=== PATIENT | male | born 1965 | race Caucasian/White ===

== ENCOUNTER 2017-03-15 18:48 | Emergency (ER) | payer MEDICAID ==
[2017-03-15 19:08] VITALS: RESP 18; TEMP 98.6
[2017-03-15] MEDS ORDERED: NS 1,000 ML IV ONE (19:10)
--- NOTE | 2017-03-15 19:12 | EDPHY ---
H & P Time Seen by Provider: 03/15/17 19:06 HPI/ROS: CHIEF COMPLAINT: Vomiting blood HISTORY OF PRESENT ILLNESS: Patient is a 51-year-old homeless man who comes to the emergency department complaining of vomiting blood several times over the last 2 days. He states that there only specks blood. He denies blood in his stool. He denies abdominal pain. He denies heartburn. He is an alcoholic. States that this happened 4 unusually resolve spontaneously. Does not take any medications. REVIEW OF SYSTEMS: Constitutional: denies: chills, fever, recent illness, recent injury EENTM: denies: blurred vision, double vision, nose congestion Respiratory: denies: cough, shortness of breath Cardiac: denies: chest pain, irregular heart rate, lightheadedness, palpitations Gastrointestinal/Abdominal: See HPI Genitourinary: denies: dysuria, frequency, hematuria, pain Musculoskeletal: denies: joint pain, muscle pain Skin: denies: lesions, rash, jaundice, bruising Neurological: denies: headache, numbness, paresthesia, tingling, dizziness, weakness Hematologic/Lymphatic: denies: blood clots, easy bleeding, easy bruising Immunologic/allergic: denies: HIV/AIDS, transplant EXAM: GENERAL: Well-appearing, well-nourished and in no acute distress. HEAD: Atraumatic, normocephalic. EYES: Pupils equal round and reactive to light, extraocular movements intact, sclera anicteric, conjunctiva are normal. ENT: TMs normal, nares patent, oropharynx clear without exudates. Moist mucous membranes. NECK: Normal range of motion, supple without lymphadenopathy or JVD. LUNGS: Breath sounds clear to auscultation bilaterally and equal. No wheezes rales or rhonchi. HEART: Regular rate and rhythm without murmurs, rubs or gallops. ABDOMEN: Soft, nontender, normoactive bowel sounds. No guarding, no rebound. No masses appreciated. : No gross blood, no hemorrhoids visible, no fissure, no tenderness BACK: No CVA tenderness, no spinal tenderness, step-offs or deformities EXTREMITIES: Normal range of motion, no pitting or edema. No clubbing or cyanosis. NEUROLOGICAL: Cranial nerves II through XII grossly intact. Normal speech, normal gait. 5/5 strength, normal movement in all extremities, normal sensation PSYCH: Normal mood, normal affect. SKIN: Warm, dry, normal turgor, no visible rashes or lesions. Source: Patient Exam Limitations: No limitations - Personal History Tetanus Vaccine Date: 2008 - Medical/Surgical History Hx Asthma: No Hx Chronic Respiratory Disease: No Hx Diabetes: No Hx Cardiac Disease: No Hx Renal Disease: No Hx Cirrhosis: No Hx Alcoholism: Yes Hx HIV/AIDS: No Hx Splenectomy or Spleen Trauma: No Other PMH: etoh abuse, depression - Family History Significant Family History: No pertinent family hx - Social History Smoking Status: Current every day smoker Alcohol Use: Heavy Drug Use: Marijuana Constitutional: Initial Vital Signs Temperature (C) 37.0 C 03/15/17 19:05 Heart Rate 114 H 03/15/17 19:05 Respiratory Rate 18 03/15/17 19:05 Blood Pressure 137/86 H 03/15/17 19:05 O2 Sat (%) 92 03/15/17 19:05 O2 Delivery Mode Room Air Allergies/Adverse Reactions: No Known Allergies Allergy (Verified 03/24/16 14:57) Home Medications: Medication Instructions Recorded Wellbutrin 100mg (RX) 03/24/16 Famotidine [Pepcid 20 MG (OTC)] 20 mg PO BID #30 tab 03/15/17 Medical Decision Making ED Course/Re-evaluation: The patient's Hemoccult is negative. His hematocrit is stable. I will start him on Pepcid and have him follow up with GI and with his primary doctor. He understands and agrees with this plan. we discussed indications for returning. He has not had any episodes of vomiting here in the emergency department. Differential Diagnosis: Partial list of the Differential diagnosis considered include but were not limited to; GI bleed, peptic ulcer disease and although unlikely based on the history and physical exam, I also considered hepatitis, esophageal rupture. I discussed these differential diagnoses and the plan with the patient as well as the usual and expected course. The patient understands that the diagnosis is provisional and that in medicine we are not always correct and that further workup is often warranted. Usual and customary warnings were given. All of the patient's questions were answered. The patient was instructed to return to the emergency department should the symptoms at all worsen or return, otherwise to followup with the physician as we discussed. - Data Points Laboratory Results: Laboratory Results 03/15/17 16:51 03/15/17 16:51 03/15/17 03/15/17 03/15/17 19:11 16:51 16:51 WBC 10.85 10^3/uL H 10^3/uL (3.80-9.50) RBC 4.21 10^6/uL L 10^6/uL (4.40-6.38) Hgb 14.0 g/dL g/dL (13.7-17.5) Hct 40.7 % % (40.0-51.0) MCV 96.7 fL fL (81.5-99.8) MCH 33.3 pg pg (27.9-34.1) MCHC 34.4 g/dL g/dL (32.4-36.7) RDW 12.9 % % (11.5-15.2) Plt Count 274 10^3/uL 10^3/uL (150-400) MPV 9.8 fL fL (8.7-11.7) Neut % (Auto) 65.7 % % (39.3-74.2) Lymph % (Auto) 18.4 % % (15.0-45.0) [place] % (Auto) 14.6 % H % (4.5-13.0) Eos % (Auto) 0.4 % L % (0.6-7.6) Baso % (Auto) 0.5 % % (0.3-1.7) Nucleat RBC Rel Count 0.0 % % (0.0-0.2) Absolute Neuts (auto) 7.14 10^3/uL H 10^3/uL (1.70-6.50) Absolute Lymphs (auto) 2.00 10^3/uL 10^3/uL (1.00-3.00) Absolute Monos (auto) 1.58 10^3/uL H 10^3/uL (0.30-0.80) Absolute Eos (auto) 0.04 10^3/uL 10^3/uL (0.03-0.40) Absolute Basos (auto) 0.05 10^3/uL 10^3/uL (0.02-0.10) Absolute Nucleated RBC 0.00 10^3/uL 10^3/uL (0-0.01) Immature Gran % 0.4 % % (0.0-1.1) Immature Gran # 0.04 10^3/uL 10^3/uL (0.00-0.10) Sodium 134 mEq/L mEq/L (134-144) Potassium 4.3 mEq/L mEq/L (3.5-5.2) Chloride 96 mEq/L L mEq/L (97-110) Carbon Dioxide 22 mEq/l mEq/l (22-31) Anion Gap 16 mEq/L mEq/L (8-16) BUN 24 mg/dL H mg/dL (7-23) Creatinine 1.2 mg/dL mg/dL (0.7-1.3) Estimated GFR > 60 Glucose 88 mg/dL mg/dL (70-100) Calcium 9.8 mg/dL mg/dL (8.5-10.4) Stool Occult Bld Scrn NEGATIVE (NEGATIVE) Medications Given: Discontinued Medications Bupropion HCl (Wellbutrin Xl) 300 mg PO EDNOW ONE Stop: 03/15/17 21:01 Last Admin: 03/15/17 20:42 Dose: 300 mg Famotidine (Pepcid) 40 mg PO EDNOW ONE Stop: 03/15/17 19:26 Last Admin: 03/15/17 19:33 Dose: Not Given Sodium Chloride (Ns) 1,000 mls @ 0 mls/hr IV ONCE ONE PRN Reason: Wide Open Stop: 03/15/17 19:11 Last Admin: 03/15/17 19:12 Dose: 1,000 mls Famotidine 40 mg/ Sodium (Chloride) 104 mls @ 408 mls/hr IV EDNOW ONE Stop: 03/15/17 19:46 Last Admin: 03/15/17 19:33 Dose: 104 mls Ondansetron HCl (Zofran) 4 mg IVP EDNOW ONE Stop: 03/15/17 19:15 Last Admin: 03/15/17 19:31 Dose: Not Given Venlafaxine HCl (Effexor Xr) 150 mg PO EDNOW ONE Stop: 03/16/17 20:10 Last Admin: 03/15/17 20:37 Dose: 150 mg Departure - Departure Disposition: Home, Routine, Self-Care Clinical Impression: Alcoholism Vomiting Qualifiers: Vomiting type: unspecified Vomiting Intractability: non-intractable Nausea presence: without nausea Qualified Code(s): R11.11 - Vomiting without nausea Condition: Good Instructions: Acute Nausea and Vomiting (ED), Alcohol Dependence (ED) Referrals: Patient,NotPresent [Unknown] - As per Instructions [facility],. [Clinic] - As per Instructions Christ Le MD [Medical Doctor] - As per Instructions Prescriptions: Famotidine [Pepcid 20 MG (OTC)] 20 mg PO BID #30 tab
[2017-03-15] MEDS ORDERED: ONDANSETRON 4 MG/2 ML VIAL IVP ONE (19:14)
[2017-03-15 19:16] LABS: % IMMATURE GRANULYOCYTES 0.4 % (0.0-1.1); ABSOLUTE IMMATURE GRANULOCYTES 0.04 10^3/uL (0.00-0.10); ADD DIFF? NO; ADD MORPH? NO; ADD SCAN? NO; ATYPICAL LYMPHOCYTE FLAG 0 (0-99); FRAGMENT RBC FLAG 0 (0-99); HEMATOCRIT 40.7 % (40.0-51.0); LEFT SHIFT FLG 10 (0-99); LIPEMIA HEMOLYSIS FLAG 90 (0-99); MEAN CELL HEMOGLOBIN 33.3 pg (27.9-34.1); MEAN CELL HEMOGLOBIN CONCENTR. 34.4 g/dL (32.4-36.7); MEAN CELL VOLUME 96.7 fL (81.5-99.8); MEAN PLATELET VOLUME 9.8 fL (8.7-11.7); PLATELET CLUMPS FLAG 0 (0-99); PLATELET COUNT 274 10^3/uL (150-400); RED BLOOD CELL COUNT 4.21 10^6/uL (4.40-6.38); RED CELL DISTRIBUTION WIDTH 12.9 % (11.5-15.2)
[2017-03-15 19:24] LABS: ANION GAP 16 mEq/L (8-16); CALCIUM 9.8 mg/dL (8.5-10.4); CARBON DIOXIDE 22 mEq/l (22-31); CHLORIDE 96 mEq/L (97-110); CREATININE 1.2 mg/dL (0.7-1.3); GLOMERULAR FILTRATION RATE > 60; GLUCOSE 88 mg/dL (70-100); POTASSIUM 4.3 mEq/L (3.5-5.2); SODIUM 134 mEq/L (134-144)
[2017-03-15] MEDS ORDERED: FAMOTIDINE 20 MG/2 ML SDV ONE (19:27)
[2017-03-15] MEDS ORDERED: FAMOTIDINE 20 MG/NACL/50 ML BAG IV ONE (19:27)
[2017-03-15] MEDS ORDERED: FAMOTIDINE 40 MG in NS 100 ML IV ONE (19:31)
[2017-03-15] MEDS: FAMOTIDINE 20 MG TAB PO ONE ×2 (19:32→19:33)
[2017-03-15] MEDS ORDERED: buPROPion SR 150 MG TAB PO ONE (20:09)
[2017-03-15 20:44] VITALS: BP 128/77; PULSE 96; O2SAT 100
[2017-03-15] MEDS ORDERED: buPROPion XL 150 MG TAB PO ONE (21:00)
[2017-03-16] MEDS ORDERED: VENLAFAXINE XR 150 MG CAP PO ONE (20:09)
== END 2017-03-15 20:44 | disposition home or self-care (01) ==
LOC: EDUNIT#
DX: R11.11 Vomiting without nausea (principal); F10.20 Alcohol dependence, uncomplicated; F17.200 Nicotine dependence, unspecified, uncomplicated
CPT/HCPCS: 96374; J2405

== ENCOUNTER 2017-03-21 18:55 | Emergency (ER) | payer MEDICAID ==
[2017-03-21 19:08] VITALS: BP 117/78; PULSE 98; RESP 16; TEMP 98.4; O2SAT 96
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
[2017-03-21] MEDS ORDERED: VENLAFAXINE XR 150 MG CAP PO ONE (19:23)
[2017-03-21] MEDS ORDERED: buPROPion 100 MG TAB PO ONE (19:24)
[2017-03-21] MEDS ORDERED: buPROPion XL 150 MG TAB PO ONE (19:45)
== END 2017-03-21 19:42 | disposition home or self-care (01) ==
DX: Z76.0 Encounter for issue of repeat prescription (principal); F17.200 Nicotine dependence, unspecified, uncomplicated

== ENCOUNTER 2017-05-03 21:44 | Emergency (ER) | payer MEDICAID ==
[2017-05-03 21:57] VITALS: RESP 18; TEMP 98.6
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
[2017-05-03] MEDS ORDERED: CHLORDIAZEPOXIDE 25MG PREPK#6 BTL TAKEHOME ONE ×2 (23:49→23:52)
[2017-05-03 23:52] VITALS: BP 112/78; PULSE 88; O2SAT 94
== END 2017-05-04 00:30 | disposition home or self-care (01) ==
LOC: EDUNIT#
DX: F10.129 Alcohol abuse with intoxication, unspecified (principal); F17.200 Nicotine dependence, unspecified, uncomplicated

== ENCOUNTER 2017-06-27 11:44 | Emergency (ER) | payer MEDICAID ==
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
[2017-06-27 14:20] VITALS: BP 97/67; PULSE 83; RESP 18; TEMP 98.6; O2SAT 93
== END 2017-06-27 14:19 | disposition home or self-care (01) ==
DX: S00.83XA Contusion of other part of head, initial encounter (principal); F10.129 Alcohol abuse with intoxication, unspecified; F17.200 Nicotine dependence, unspecified, uncomplicated; Y04.2XXA Assault by strike against or bumped into by another person, initial encounter

== ENCOUNTER 2017-11-22 12:06 | Inpatient (IN) | payer MEDICAID ==
[2017-11-22] MEDS ORDERED: NS 1,000 ML IV ONE (12:37)
[2017-11-22] MEDS ORDERED: ONDANSETRON 4 MG/2 ML VIAL IVP ONE (12:37)
--- NOTE | 2017-11-22 12:42 | CPEKG ---
Heart Rate: 105 RR Interval: 571 P-R Interval: 152 QRSD Interval: 96 QT Interval: 340 QTC Interval: 450 P [place]: 56 QRS [place]: -71 T Wave [place]: 64 EKG Severity - ABNORMAL ECG - EKG Impression: SINUS TACHYCARDIA EKG Impression: LEFT ANTERIOR FASCICULAR BLOCK Electronically Signed By: Tejinder Rodriguez 22-Nov-2017 15:56:54
[2017-11-22 13:25] LABS: PLATELET COUNT 194 10^3/uL (150-400)
--- NOTE | 2017-11-22 13:27 | EDPHY ---
H & P Stated Complaint: geneeralized abd pain since last night n/v/ Time Seen by Provider: 11/22/17 13:18 HPI/ROS: CHIEF COMPLAINT: Abdominal pain and vomiting HISTORY OF PRESENT ILLNESS: The patient presents to the ED with complaints of abdominal pain and vomiting. The patient does have a history of alcohol abuse. He denies prior history of pancreatitis. The patient denies any diarrhea, melena or hematemesis. The patient complains of generalized abdominal wall pain. He also complains of pain in his hips bilaterally. The patient is taking Wellbutrin currently. The patient denies any fever, cough or congestion. The patient states that his abdominal pain is moderate to severe in nature. REVIEW OF SYSTEMS: A comprehensive 10 point review of systems is otherwise negative aside from elements mentioned in the history of present illness. Source: Patient Exam Limitations: No limitations - Personal History Current Tetanus/Diphtheria Vaccine: Yes Tetanus Vaccine Date: 2008 - Medical/Surgical History Hx Asthma: No Hx Chronic Respiratory Disease: No Hx Diabetes: No Hx Cardiac Disease: No Hx Renal Disease: No Hx Cirrhosis: No Hx Alcoholism: Yes Hx HIV/AIDS: No Hx Splenectomy or Spleen Trauma: No Other PMH: etoh abuse, depression - Social History Smoking Status: Current every day smoker - Physical Exam Exam: General Appearance: Alert, mild discomfort Eyes: Pupils equal and round no pallor or injection ENT, Mouth: Mucous membranes moist Respiratory: There are no retractions, lungs are clear to auscultation Cardiovascular: Regular rate and rhythm Gastrointestinal: Generalized abdominal tenderness, normal bowel sounds Neurological: A&O, normal motor function, normal sensory exam, normal cranial nerves Skin: Warm and dry, no rashes Musculoskeletal: Neck is supple nontender Extremities: symmetrical, full range of motion Constitutional: Initial Vital Signs Temperature (C) 36.7 C 11/22/17 12:16 Heart Rate 110 H 11/22/17 12:16 Respiratory Rate 20 11/22/17 12:16 Blood Pressure 122/87 H 11/22/17 12:16 O2 Sat (%) 98 11/22/17 12:16 O2 Delivery Mode Room Air Allergies/Adverse Reactions: No Known Allergies Allergy (Verified 11/22/17 12:15) Home Medications: Medication Instructions Recorded Venlafaxine Xr [Effexor Xr] 150 mg PO DAILY 11/22/17 buPROPion XL [Wellbutrin Xl] 300 mg PO DAILY 11/22/17 Medical Decision Making - Diagnostics EKG Interpretation: EKG: Complete interpretation has been separately recorded in the [facility] archive. Summary impression: Sinus tachycardia rate 105 Imaging Results: Imaging Impressions Abdomen CT 11/22/17 13:43 Impression: 1. Left lower lobe pneumonia versus pulmonary infarct. 2. No CT evidence of appendicitis, abscess or bowel obstruction. 3. Mild atherosclerotic aorta without aneurysm. Findings and recommendations discussed with Emergency Department physician, Dr. Dino Miles at 1424 hours on November 22, 2017. Final report concurs with initial preliminary interpretation. Chest/Thorax CTA 11/22/17 14:47 Impression: 1. Motion limited study with no central pulmonary embolus. 2. Left lower lobe consolidation suggesting pneumonia, with probable reactive adenopathy. Consider follow up CT in one to three months to assess for resolution. 3. Additional findings as above. Findings discussed with Dr. Dino Miles on 11/22/2017 at 16:53. ED Course/Re-evaluation: The patient presents the ED with with vomiting, abdominal pain and pleuritic chest pain. The patient has had a slight cough. The patient is alcoholic. The patient was noted to be slightly tachycardic upon arrival. He was afebrile. The patient did have a fair amount of abdominal tenderness on exam. The patient was taken for CT scan of the abdomen pelvis given his tenderness, tachycardia leukocytosis. There is no evidence of an obvious intra-abdominal process however a left lower lobe infiltrate was noted. Given the abrupt onset of the patient's symptoms I was concerned about PE. A CT pulmonary angiogram was obtained which demonstrates only a dense consolidation and no evidence of thromboembolic disease. The patient had an IV established. He received blood cultures x2. He received IV fluid rehydration. The patient will be started on IV Invanz for likely aspiration. The patient will be admitted to the hospital for further evaluation and management. The consultation was made with Dr. Flex Arnold from the hospitalist service who will admit the patient. Differential Diagnosis: Differential diagnosis considered includes appendicitis, perforation, obstruction, viral syndrome, pneumonia, aspiration, pancreatitis - Data Points Laboratory Results: Laboratory Results 11/22/17 12:55 11/22/17 12:55 11/22/17 11/22/17 11/22/17 17:15 16:55 12:55 WBC RBC Hgb Hct MCV MCH MCHC RDW Plt Count MPV Neut % (Auto) Lymph % (Auto) Sevier % (Auto) Eos % (Auto) Baso % (Auto) Nucleat RBC Rel Count Absolute Neuts (auto) Absolute Lymphs (auto) Absolute Monos (auto) Absolute Eos (auto) Absolute Basos (auto) Absolute Nucleated RBC Immature Gran % Seg Neutrophils % Band Neutrophils % Lymphocytes % Monocytes % Eosinophils % Metamyelocytes % Myelocytes % Immature Gran # Absolute Seg Neuts Absolute Band Neuts Absolute Lymphocytes Absolute Monocytes Absolute Eosinophils Absolute Metamyelocyte Absolute Myelocytes Platelet Estimate Smear Review By VBG Lactic Acid 1.2 mmol/L mmol/L (0.7-2.1) Sodium 131 mEq/L L mEq/L (135-145) Potassium 4.5 mEq/L mEq/L (3.5-5.2) Chloride 94 mEq/L L mEq/L (97-110) Carbon Dioxide 24 mEq/l mEq/l (22-31) Anion Gap 13 mEq/L mEq/L (8-16) BUN 14 mg/dL mg/dL (7-23) Creatinine 1.1 mg/dL mg/dL (0.7-1.3) Estimated GFR > 60 Glucose 101 mg/dL H mg/dL (70-100) Calcium 9.6 mg/dL mg/dL (8.5-10.4) Total Bilirubin Conjugated Bilirubin Unconjugated Bilirubin AST ALT Alkaline Phosphatase Troponin I < 0.012 ng/mL ng/mL (0.000-0.034) Total Protein Albumin Lipase 31 IU/L IU/L (23-300) 11/22/17 11/22/17 12:55 12:35 WBC 19.54 10^3/uL H 10^3/uL (3.80-9.50) RBC 3.94 10^6/uL L 10^6/uL (4.40-6.38) Hgb 13.4 g/dL L g/dL (13.7-17.5) Hct 38.0 % L % (40.0-51.0) MCV 96.4 fL fL (81.5-99.8) MCH 34.0 pg pg (27.9-34.1) MCHC 35.3 g/dL g/dL (32.4-36.7) RDW 13.2 % % (11.5-15.2) Plt Count 194 10^3/uL 10^3/uL (150-400) MPV 9.6 fL fL (8.7-11.7) Neut % (Auto) Not Reported Lymph % (Auto) Not Reported Sevier % (Auto) Not Reported Eos % (Auto) Not Reported Baso % (Auto) Not Reported Nucleat RBC Rel Count 0.0 % % (0.0-0.2) Absolute Neuts (auto) Not Reported Absolute Lymphs (auto) Not Reported Absolute Monos (auto) Not Reported Absolute Eos (auto) Not Reported Absolute Basos (auto) Not Reported Absolute Nucleated RBC 0.00 10^3/uL 10^3/uL (0-0.01) Immature Gran % Not Reported Seg Neutrophils % 63 % % Band Neutrophils % 20 % % Lymphocytes % 9 % % Monocytes % 3 % % Eosinophils % 1 % % Metamyelocytes % 3 % % Myelocytes % 1 % % Immature Gran # Not Reported Absolute Seg Neuts 12.31 10^/uL H 10^/uL (1.70-6.50) Absolute Band Neuts 3.91 10^3/uL H 10^3/uL (0.00-0.70) Absolute Lymphocytes 1.76 10^3/uL 10^3/uL (1.00-3.00) Absolute Monocytes 0.59 10^3/uL 10^3/uL (0.30-0.80) Absolute Eosinophils 0.20 10^3/uL 10^3/uL (0.03-0.40) Absolute Metamyelocyte 0.59 10^3/mL H 10^3/mL (0.00-0.00) Absolute Myelocytes 0.20 10^3/mL H 10^3/mL (0.00-0.00) Platelet Estimate ADEQUATE (ADEQ) Smear Review By Husam ONEIL MD VBG Lactic Acid Sodium Potassium Chloride Carbon Dioxide Anion Gap BUN Creatinine Estimated GFR Glucose Calcium Total Bilirubin 1.1 mg/dL mg/dL (0.1-1.4) Conjugated Bilirubin 0.4 mg/dL mg/dL (0.0-0.5) Unconjugated Bilirubin 0.7 mg/dL mg/dL (0.0-1.1) AST 34 IU/L IU/L (17-59) ALT 33 IU/L IU/L (21-72) Alkaline Phosphatase 80 IU/L IU/L (38-126) Troponin I Total Protein 6.9 g/dL g/dL (6.3-8.2) Albumin 4.0 g/dL g/dL (3.5-5.0) Lipase Medications Given: Discontinued Medications Ertapenem (Invanz) 1 gm IVP EDNOW ONE PRN Reason: Protocol Stop: 11/22/17 16:56 Last Admin: 11/22/17 17:27 Dose: 1 gm Sodium Chloride (Ns) 1,000 mls @ 0 mls/hr IV ONCE ONE PRN Reason: Wide Open Stop: 11/22/17 12:38 Last Admin: 11/22/17 12:43 Dose: 1,000 mls Ondansetron HCl (Zofran) 4 mg IVP EDNOW ONE Stop: 11/22/17 12:38 Last Admin: 11/22/17 12:43 Dose: 4 mg Departure - Departure
[2017-11-22] MEDS ORDERED: IOPAMIDOL (ISOVUE-300) 100 ML BTL ONE (13:53)
[2017-11-22] MEDS ORDERED: IOPAMIDOL (ISOVUE 370) 100 ML BTL IV ONE (15:06)
--- NOTE | 2017-11-22 16:37 | ASMTCMCOM ---
CM Note CM Note Notes: Patient's PCP is Dr. Juliana Longoria at [facility]. This CM called clinic to alert of patient's ER visit/coordination of care. Follow up appointment scheduled for tomorrow, Sundaynovember 23 at 9:45 AM. Patient informed of follow up appointment by and details of appointment added to patient's discharge instructions Date Signed: 11/22/2017 04:36 PM Electronically Signed By:Andreina Palomares RN
[2017-11-22] MEDS ORDERED: ERTAPENEM 1 GM VIAL IVP ONE (16:55)
[2017-11-22] MEDS ORDERED: ONDANSETRON DISINTEGRATING 4 MG TAB PO PRN (17:38)
[2017-11-22] MEDS ORDERED: PROMETHAZINE HCL 25 MG/ML INJ IVP PRN (17:38)
[2017-11-22] MEDS ORDERED: ONDANSETRON 4 MG/2 ML VIAL IVP PRN (17:38)
[2017-11-22] MEDS ORDERED: oxyCODONE IR 5 MG TAB PO PRN (17:38)
[2017-11-22] MEDS ORDERED: LORazepam 1 MG TAB PO PRN (17:43)
[2017-11-22] MEDS ORDERED: LR 1,000 ML IV SCH (18:00)
[2017-11-22] MEDS ORDERED: AMPICILLIN/SULBACTAM 3 GM in NS 100 ML IV SCH (18:00)
--- NOTE | 2017-11-22 18:10 | GHP ---
[f rep st] HISTORY AND PHYSICAL DATE OF ADMISSION: 11/22/2017 CHIEF COMPLAINT: Abdominal pain. HISTORY OF PRESENT ILLNESS: A 51-year-old man presents to the emergency department with abdominal pa in. Last night he was vomiting about 6 times. He did not have any diarrhea. He had no hematemesis. He then comes in today complaining of some left-sided chest pain as well as some abdominal pain. H e also describes some diffuse myalgias. He has not had a fever. He has started coughing slightly to day though this is not a predominant symptom. He does not feel short of breath. He is mostly bother ed by abdominal and chest pain. PAST MEDICAL/SURGICAL HISTORY: 1. Knee surgery. 2. Depression and anxiety. MEDICATIONS: Please see medication reconciliation. ALLERGIES: No known drug allergies. FAMILY HISTORY: Reviewed and noncontributory. SOCIAL HISTORY: He drinks alcohol about a pint a day. He is currently smoking. REVIEW OF SYSTEMS: A 10-point review of systems is conducted and is negative except per history of p resent illness. PHYSICAL EXAMINATION: VITAL SIGNS: Blood pressure 125/84, heart rate 104, respiration rate 18, satu rating 98% on room air, temperature 37.4. GENERAL: The patient is a pleasant man who appears somewh at uncomfortable in mild distress. HEENT: Shows him to be normocephalic, atraumatic. CARDIOVASCULA R: Regular rate and rhythm. He is mildly tachycardic. There are no murmurs, rubs, or gallops. PUL MONARY: Shows mildly diminished breath sounds in the left base. He is not in any respiratory distres s. SKIN: Shows no rash. GENITOURINARY: No Dwyer. NEUROLOGIC: Shows him to be alert and oriented x3. He is moving all extremities. PSYCHIATRIC: Exam shows normal mood and affect. LABORATORY: White count is 19,000, he has 3.91 absolute bands, hemoglobin is 13.4, sodium 131 creati nine 1.1. LFTs are normal. Lipase is negative. DATA: 1. I discussed this with Dr. Miles. Will admit to med/surg. 2. I reviewed his abdominal CT scan as well as his chest and thorax CT scan. These are negative for pulmonary embolus. He does have a left lower lobe pneumonia. 3. EKG, which I personally viewed and interpreted, shows a poor tracing, overall sinus rhythm. IMPRESSION AND PLAN: 1. Pneumonia: Suspect this is aspiration in the setting of nausea, vomiting the night prior. Got a dose of Invanz in the emergency department. I will start him on Unasyn. We will check a respiratory viral PCR as well as sputum culture. 2. Anemia: Slightly lower than previous. We will recheck this tomorrow. 3. Tachycardia: Suspect due to pneumonia. We will follow closely. 4. Hyponatremia: Likely hypovolemic, will provide him lactated Ringer's overnight. 5. Chest pain and abdominal pain: Strongly suspect that this is either myalgias due to infection or pleuritis with abdominal wall tenderness from nausea, vomiting. Will provide him options for pain c ontrol. This will include IV morphine as well as IV Toradol. We will follow this with treatment. H e has been ruled out for pulmonary embolism. We will check a troponin tonight and 1 tomorrow morning though I am not suspicious of cardiac etiology at this point. 6. Alcohol abuse: He has a history of withdrawal in the past. I will provide him a beer with reagan ch. I have also placed him on empiric CIWA. 7. Venous thromboembolism risk is low. Will encourage ambulation. /[id number]/MODL
[2017-11-22] MEDS ORDERED: ACETAMINOPHEN 500 MG TAB ONE (18:38)
[2017-11-22] MEDS ORDERED: ACETAMINOPHEN 500 MG TAB PO ONE (18:39)
[2017-11-22] MEDS: KETOROLAC 15 MG/1 ML SDV IVP SCH (19:40)
[2017-11-22] MEDS: IPRATROPIUM/ALBUTEROL 3 ML DEYVIAL IH SCH (20:49)
[2017-11-23] MEDS: BEER 1 EACH EA PO SCH ×3 (00:15→19:17)
[2017-11-23] MEDS: KETOROLAC 15 MG/1 ML SDV IVP SCH ×4 (00:16→19:14)
[2017-11-23] MEDS ORDERED: LORazepam 1 MG TAB PO PRN (00:34)
[2017-11-23] MEDS ORDERED: LR 1,000 ML IV SCH (01:00)
[2017-11-23 04:05] LABS: PLATELET COUNT 183 10^3/uL (150-400)
[2017-11-23] MEDS: IPRATROPIUM/ALBUTEROL 3 ML DEYVIAL IH SCH ×2 (05:48→11:08)
[2017-11-23] MEDS: buPROPion XL 150 MG TAB PO SCH (09:59)
[2017-11-23] MEDS: THIAMINE HCL 500 MG in NS 100 ML IV SCH (09:59)
[2017-11-23] MEDS: VENLAFAXINE XR 150 MG CAP PO SCH (09:59)
--- NOTE | 2017-11-23 10:15 | HOSPPROG ---
Hospitalist Progress Note Assessment/Plan: 51 yo M w possible alcoholism here w pneumonia pneumonia: aspiration vs CAP, favor former continue unasyn abdominal pain: CT (interp by me) and exam unremarkable eating proph: lmwh alcohol use: on CIWA and daily beer dispo; inpatient Subjective: CT w LLL pneumonia (interp by me). afebrile Objective: Vital Signs Temp Pulse Resp BP Pulse Ox 36.9 C 91 18 107/74 97 11/23/17 08:00 11/23/17 08:00 11/23/17 08:00 11/23/17 08:00 11/23/17 08:00 Microbiology 11/23/17 06:20 Respiratory Panel (PCR) - Final Nasal, Sinus - Swab No Organism Detected Laboratory Results 11/23/17 03:21 11/23/17 03:21 11/22/17 11/23/17 11/24/17 05:59 05:59 05:59 Intake Total 1450 500 Balance 1450 500 - Physical Exam Constitutional: no apparent distress, appears nourished Eyes: PERRL, anicteric sclera Ears, Nose, Mouth, Throat: moist mucous membranes, hearing normal, ears appear normal Cardiovascular: regular rate and rhythym, no murmur, rub, or gallop Respiratory: other (crackles at L base. good air movement. no wheeze) Gastrointestinal: normoactive bowel sounds, soft, non-tender abdomen Genitourinary: no bladder fullness, No rodarte in urethra Skin: warm, normal color Musculoskeletal: full muscle strength, no muscle tenderness Neurologic: AAOx3, sensation intact bilaterally Psychiatric: interacting appropriately ICD10 Worksheet Patient Problems: Problems Problem Status Onset Alcoholic intoxication Acute
--- NOTE | 2017-11-23 10:25 | ASMTCMCOM ---
CM Note CM Note Notes: Pt is a 51 y/o man admitted for pneumonia. Pt is homeless and has a hx of ETOH. CM met w/ pt for dispo planning. Pt reports that he does not need any resources at this time. Pt reports that he does not plan on stopping his ETOH use. Pt reports that he may need help w/ getting a bus pass when he is medically stable to d/c. No therapies ordered at this time. CM to follow. Plan: Independent Date Signed: 11/23/2017 10:24 AM Electronically Signed By:ROB Farmer
--- NOTE | 2017-11-23 12:06 | PDMN ---
Medical Necessity Medical necessity: change to IP; los>2mn for PNA, aspiration vs CAP, abd pain; requires continued IV abx, CIWA; per order and progress note 11/23/17
[2017-11-23] MEDS: AMPICILLIN/SULBACTAM 3 GM in NS 100 ML IV SCH ×2 (12:54→19:14)
[2017-11-23] MEDS: ACETAMINOPHEN 325 MG TAB PO PRN (20:07)
[2017-11-24] MEDS: KETOROLAC 15 MG/1 ML SDV IVP SCH ×2 (00:04→05:51)
[2017-11-24] MEDS: AMPICILLIN/SULBACTAM 3 GM in NS 100 ML IV SCH ×2 (00:04→05:51)
[2017-11-24] MEDS: ACETAMINOPHEN 325 MG TAB PO PRN (05:51)
[2017-11-24 07:08] VITALS: BP 123/85; PULSE 82; RESP 15; TEMP 98.3; O2SAT 95
[2017-11-24] MEDS: buPROPion XL 150 MG TAB PO SCH (09:32)
[2017-11-24] MEDS: VENLAFAXINE XR 150 MG CAP PO SCH (09:32)
[2017-11-24] MEDS: THIAMINE HCL 500 MG in NS 100 ML IV SCH (09:38)
--- NOTE | 2017-11-24 15:53 | ASDISCHSUM ---
Discharge Information Plan Status:Homeless/Prison Medically Cleared to Leave: Discharge Date:11/24/2017 03:35 PM CM D/C Disposition:Home, Routine, Self-Care ADT D/C Disposition:Home, Routine, Self-Care Projected Discharge Date:11/24/2017 03:35 PM Transportation at D/C:Bus Ticket Discharge Delay Reason: Follow-Up Date:11/24/2017 03:35 PM Discharge Slot: Final Diagnosis: Placement Information Patient Contact Information Contact Name:NEERAJ Relationship:Mother Address:[address] Work Phone: City:[place] Alternate Phone: [facility]/Zip Code:[place] [address] Email: Financial Information Financial Class: Primary Plan Desc:[employer] [place] Primary Plan Number:[id number] Secondary Plan Desc: Secondary Plan Number: Assessment Information LACE LACE Emergency dept visits in Answers: 2 last 6 months Score: 2 Date Signed: 11/22/2017 04:33 PM Electronically Signed By:Andreina Palomares RN [facility] CM Progress Note CM Note CM Note Notes: Patient's PCP is Dr. Juliana Longoria at [facility] [place]. This CM called clinic to alert of patient's ER visit/coordination of care. Follow up appointment scheduled for tomorrow, Sundaynovember 23 at 9:45 AM. Patient informed of follow up appointment by and details of appointment added to patient's discharge instructions Date Signed: 11/22/2017 04:36 PM Electronically Signed By:Andreina Palomares RN [facility] Progress Note CM Note CM Note Notes: Pt is a 51 y/o man admitted for pneumonia. Pt is homeless and has a hx of ETOH. CM met w/ pt for dispo planning. Pt reports that he does not need any resources at this time. Pt reports that he does not plan on stopping his ETOH use. Pt reports that he may need help w/ getting a bus pass when he is medically stable to d/c. No therapies ordered at this time. CM to follow. Plan: Independent Date Signed: 11/23/2017 10:24 AM Electronically Signed By:ROB Farmer Case Management Discharge Plan Note Case Management Discharge Discharge Order Complete? Answers: Yes Patient to Obtain Answers: via MAP Medications Transportation Arranged Answers: Bus Tokens Discharge Comments Notes: Patient discharged to streets. Has been through [facility], [facility]. Bus pass provided, antibiotics also provided via MAP program. Date Signed: 11/24/2017 10:03 AM Electronically Signed By:Jane Lopez RN Intervention Information Intervention Type:*Incorrect Registration Date of Service:11/23/2017 10:41 AM Patient Type:Inpatient Staff Member:LAYA Awad Susan Hours: Discipline: Severity: Comment:
--- NOTE | 2017-11-25 05:05 | GDS ---
[f rep st] DISCHARGE SUMMARY DISCHARGE DIAGNOSES: 1. Acute community-acquired pneumonia. 2. History of alcohol use/abuse. HISTORY OF PRESENT ILLNESS: A 51-year-old male presenting with complaints of shortness of breath. F or details of patient's initial presentation, please see the history and physical dated 11/22/1809/30/2017 . CONSULTATIVE SERVICES: None. PROCEDURES: On 11/22/2017 the patient underwent CTA of the chest, which showed left lower lobe conso lidation consistent with pneumonia. HOSPITAL COURSE BY ISSUE: Community-acquired pneumonia. Patient was initiated on IV antibiotics. B lood cultures obtained from the emergency department. Workup for a pathogen was negative from a resp iratory panel PCR. Blood cultures remain no growth to date at the time of the patient's disposition. He was transitioned from IV antibiotics to oral levofloxacin on the day of disposition and will com plete a full 7-day course. The patient was saturating well at 95% on room air on the day of disposit ion. MEDICATIONS AT THE TIME OF TRANSFER: Please reference med rec printed on 11/24/2017. FOLLOWUP APPOINTMENTS: With [facility] for post disposition followup. PENDING STUDIES: At the time of this dictation include blood cultures drawn 11/22/2017 which are pre liminary no growth to date. I spent greater than 30 minutes in the planning and coordination of this discharge. /[id number]/MODL
== END 2017-11-24 15:35 | disposition home or self-care (01) | DRG 194 ==
LOC: INTOOBSV 17:20 → F2W 18:50 → OBSVTOIN 11-23 11:07
PROVIDERS: ADMIT Student in an Organized Health Care Education/Training Program; ATTEND Student in an Organized Health Care Education/Training Program
DX: J18.9 Pneumonia, unspecified organism (principal); D64.9 Anemia, unspecified; E87.1 Hypo-osmolality and hyponatremia; F10.10 Alcohol abuse, uncomplicated; F17.200 Nicotine dependence, unspecified, uncomplicated
CPT/HCPCS: G0378; J0295; J1335; J1885; J2405; J3411; Q9967

== ENCOUNTER 2017-12-13 16:04 | Emergency (ER) | payer MEDICAID ==
--- NOTE | 2017-12-13 16:23 | EDPHY ---
H & P Time Seen by Provider: 12/13/17 16:20 HPI/ROS: CHIEF COMPLAINT: Possible acute alcohol usage HISTORY OF PRESENT ILLNESS: 51-year-old homeless male arrives via ambulance after he was found sleeping at a bus stop last up. When confronted by police he became combative with has since become more calm. Admits to alcohol use. Denies hallucination. Denies trauma or fall. PRIMARY CARE PROVIDER: REVIEW OF SYSTEMS: A ten point review of systems was performed and is negative with the exception of the items mentioned in the HPI PAST MEDICAL & SURGICAL HISTORY: No pertinent medical or surgical history SOCIAL HISTORY:Homeless. Admits to alcohol use PHYSICAL EXAM (Prior to examination, patient consented to physical exam, hands were washed and my usual and customary physical exam procedures followed) 1) GENERAL: Well-developed, well-nourished, alert and oriented. Appears to be in no acute distress. 2) HEAD: Normocephalic, atraumatic 3) HEENT: Pupils equal, round, reactive to light bilaterally. Sclera anicteric. 4) NECK: Full range of motion, no meningeal signs. 5) LUNGS: Clear auscultation bilaterally, no wheezes, no rhonchi, no retractions. 6) HEART: Regular rate and rhythm, no murmur, no heave, no gallop. 7) ABDOMEN: No guarding, no rebound, no focal tenderness, 8) MUSCULOSKELETAL: Moving all extremities, no focal areas of tenderness, no obvious trauma. No peripheral edema or discoloration. 9) BACK: No CVA tenderness, no midline vertebral tenderness, no fluctuance, no step-off, no obvious trauma, no visual or palpable abnormality. 10) SKIN: No rash, no petechiae. 11) Psychiatric: Patient is oriented X 3, there is no agitation. Observed ambulating with stable steady gait, clear speech pattern, alert oriented person place time events DIFFERENTIAL DIAGNOSIS: Include but limited to alcohol use, drug use, trauma - Personal History Tetanus Vaccine Date: 2008 - Medical/Surgical History Hx Asthma: No Hx Chronic Respiratory Disease: No Hx Diabetes: No Hx Cardiac Disease: No Hx Renal Disease: No Hx Cirrhosis: No Hx Alcoholism: Yes Hx HIV/AIDS: No Hx Splenectomy or Spleen Trauma: No Other PMH: etoh abuse, depression - Social History Smoking Status: Current every day smoker Allergies/Adverse Reactions: No Known Allergies Allergy (Verified 11/22/17 12:15) Home Medications: Medication Instructions Recorded Venlafaxine Xr [Effexor Xr] 150 mg PO DAILY 11/22/17 buPROPion XL [Wellbutrin 150mg XL] 300 mg PO DAILY 11/22/17 levOFLOXACIN [levAQUIN (*)] 750 mg PO DAILY AT 10AM #5 tab 11/24/17 Medical Decision Making ED Course/Re-evaluation: 4:22 p.m.: The patient is not on [facility] hold he is clinically sober, he would like to be discharged. He has no signs of trauma. He is answering questions appropriately. He will be discharged. Care of patient under supervision of secondary supervising physician Dr Corrales . Departure - Departure Disposition: Home, Routine, Self-Care Clinical Impression: Alcohol use Condition: Good Instructions: Abuse of Alcohol (ED) Referrals: [facility],. [Clinic] - 1-2 days without fail
[2017-12-13 16:29] VITALS: BP 100/70; PULSE 85; RESP 16; TEMP 97.9; O2SAT 92
== END 2017-12-13 16:28 | disposition home or self-care (01) ==
LOC: EDUNIT#
DX: Z72.89 Other problems related to lifestyle (principal); F17.200 Nicotine dependence, unspecified, uncomplicated

== ENCOUNTER 2018-02-03 14:56 | Emergency (ER) | payer MEDICAID ==
[2018-02-03 15:18] VITALS: RESP 16
--- NOTE | 2018-02-03 15:19 | EDPHY ---
H & P Time Seen by Provider: 02/03/18 15:18 HPI/ROS: HPI: This is a 52-year-old male who presents with Chief Complaint: Left hand laceration Location: Left hand Quality: Laceration Duration: 7 days ago Signs and Symptoms: No bleeding, no radiation, no numbness, no weakness, no tingling, no incontinence, no decreased range of motion, no swelling, no pain, no fever, no redness Timing: Improving Severity: Mild Context: Patient is right-hand dominant, accidentally cut his hand on a piece of sheet metal approximately 7 days ago. He reports that his tetanus is up-to- date. He sustained a cut in between the 1st and 2nd digit web space. He reports that he has been washing the site daily keeping cover with clean sterile dressing. He took Keflex from an old wound infection. Denies any redness/warmth/drainage/paresthesias/weakness/decreased range of motion. Patient is requesting to have Steri-Strips applied. Modifying Factors: See above Comment: ROS: see HPI Constitutional: No fever, no chills, no weight loss Eyes: No blurred vision Respiratory: No shortness of breath, no cough Cardiovascular: No chest pain Gastrointestinal: No nausea, no vomiting no diarrhea Genitourinary: No dysuria Extremities: No myalgias Neurologic: No weakness, no numbness Skin: No rashes Hematologic: No bruising, no bleeding MEDICAL/SURGICAL/SOCIAL HISTORY: Medical history: Alcohol abuse, depression Surgical history: Denies Social history: Employed CONSTITUTIONAL: Extremely polite and cooperative, adult male, awake and alert, no obvious distress HEENT: Atraumatic and normocephalic. NECK: supple, no midline tenderness, flexion 45 degrees, extension 45 degrees, right and left lateral flexion 45 degrees. No meningismus. Cardiovascular: Normal S1/S2, regular rate, regular rhythm, without murmur rub or gallop. PULMONARY/CHEST: Symmetrical and nontender. no crepitus. Clear to auscultation bilaterally. Good air movement. No accessory muscle usage. ABDOMEN: Soft, nondistended, nontender, no ecchymosis. PELVIC: no pain with rocking; bilateral hips flexion 125 degrees, extension 30 degrees, with no pain internal rotation and no pain external rotation. BACK: No midline tenderness, no paraspinous spasm, deep tendon reflexes 2/2, no pain with straight leg raise, No foot drop. Achilles reflexes are equal bilaterally. Able to walk on heels and toes without difficulty. EXTREMITIES: 2/2 pulses, strength 5/5, left hand well-healing 0.25 cm linear, simple, incision between the 1st and 2nd digit web space. No scaphoid tenderness. DIP/PIP/MCP flexion/extension intact with good light touch sensation. no deformities, no clubbing, no cyanosis or edema. NEUROLOGICAL: no focal neuro deficits. GCS 15. Light touch sensation intact. SKIN: Warm and dry, no erythema. no rash. Good capillary refill. Source: Patient Exam Limitations: No limitations - Personal History Tetanus Vaccine Date: 2008 - Medical/Surgical History Hx Asthma: No Hx Chronic Respiratory Disease: No Hx Diabetes: No Hx Cardiac Disease: No Hx Renal Disease: No Hx Cirrhosis: No Hx Alcoholism: Yes Hx HIV/AIDS: No Hx Splenectomy or Spleen Trauma: No Other PMH: etoh abuse, depression - Social History Smoking Status: Current every day smoker Constitutional: Initial Vital Signs Temperature (C) 36.6 C 02/03/18 15:17 Heart Rate 101 H 02/03/18 15:17 Respiratory Rate 16 02/03/18 15:17 Blood Pressure 125/86 H 02/03/18 15:17 O2 Sat (%) 94 02/03/18 15:17 O2 Delivery Mode Room Air Allergies/Adverse Reactions: No Known Allergies Allergy (Verified 11/22/17 12:15) Home Medications: Medication Instructions Recorded Venlafaxine Xr [Effexor Xr] 150 mg PO DAILY 11/22/17 buPROPion XL [Wellbutrin 150mg XL] 300 mg PO DAILY 11/22/17 levOFLOXACIN [levAQUIN (*)] 750 mg PO DAILY AT 10AM #5 tab 11/24/17 Medical Decision Making ED Course/Re-evaluation: No signs of cellulitis/abscess No signs of neurovascular compromise/tenting of skin/compartment syndrome/ extremities and joints examined above and below area of concern and are neurovascularly intact. Steri-strips and clean sterile dressing applied. This patient was seen under the supervision of my secondary supervising physician. I evaluated care for this patient independently. Differential Diagnosis: Differential diagnosis includes but is not limited to nerve injury, tendon injury, cellulitis, abscess, wound dehiscence. Departure - Departure Disposition: Home, Routine, Self-Care Clinical Impression: Laceration of left hand without complication, excluding fingers Qualifiers: Encounter type: initial encounter Qualified Code(s): S61.412A - Laceration without foreign body of left hand, initial encounter Condition: Good Instructions: Steristrips (ED) Additional Instructions: Keep the dressing dry and in place for 48 hours. After 48 hours, you may remove the dressing; wash the site daily with mild soap and water; then pat dry. Take Tylenol 650 mg every 4 hours and/or Ibuprofen 600 mg every 8 hours with food as needed for pain. Allow Steri-Strips to fall off on their own. Return to the ER immediately if you experience redness, red streaks, have fevers /chills, flu like symptoms, limited range of motion, or any other symptoms that concern you. Referrals: Juliana Longoria [Primary Care Provider] - As per Instructions
[2018-02-03 16:12] VITALS: BP 124/82; PULSE 96; TEMP 96.8; O2SAT 98
== END 2018-02-03 16:10 | disposition home or self-care (01) ==
DX: S61.412A Laceration without foreign body of left hand, initial encounter (principal); F17.200 Nicotine dependence, unspecified, uncomplicated; Y28.8XXA Contact with other sharp object, undetermined intent, initial encounter